=== PATIENT | male | born 1995 | race Caucasian/White ===

== ENCOUNTER → 2018-08-12 | Outpatient (REF) | payer BC ==
[2018-08-12 16:33] LABS: PLATELET COUNT, AUTOMATED 219 K/uL (150-450)
== END ==
LOC: ZZSTITCHES 16:25
PROVIDERS: ATTEND Physician Assistant
DX: R53.83 Other fatigue (principal); R63.1 Polydipsia
CPT/HCPCS: 83036; 85025